=== PATIENT | male | born 1955 | race Two or more races ===

== ENCOUNTER 2022-10-25 10:47 | Emergency (ER) | payer OTHER ==
[2022-10-25 10:56] VITALS: TEMP 97.7; BMI 26.5
[2022-10-25] MEDS ORDERED: LABETALOL HCL 200 MG TABLET (FP) PO ONE (11:37)
[2022-10-25] MEDS ORDERED: LABETALOL HCL 200 MG TABLET (FP) ONE (11:40)
[2022-10-25 13:03] VITALS: BP 169/92; PULSE 89; RESP 16
[2022-10-25 14:20] LABS: POTASSIUM 3.3 mmol/L (3.5-5.1)
[2022-10-25 14:22] LABS: CALCIUM 8.4 mg/dL (8.5-10.1)
[2022-10-25 14:23] LABS: ALBUMIN 3.4 g/dl (3.4-5.0)
[2022-10-25 14:27] LABS: BILIRUBIN,TOTAL 1.2 mg/dL (0.2-1); TOT PROT 7.1 g/dl (6.4-8.2)
[2022-10-25 14:31] LABS: BLOOD UREA NITROGEN 15.9 mg/dL (7-18)
== END 2022-10-25 13:59 | disposition home or self-care (01) ==
LOC: JER 10:47
DX: R03.0 Elevated blood-pressure reading, without diagnosis of hypertension (principal)
CPT/HCPCS: 36415; 80053; 84484; 93005; 93010; 99283-25

== ENCOUNTER 2022-10-26 14:42 | Emergency (ER) | payer OTHER ==
[2022-10-26 14:48] VITALS: BP 169/111; PULSE 95; RESP 19; TEMP 98.6; BMI 24.1
[2022-10-26 17:07] LABS: EPI CELLS 10 /uL (0-25.1); HYALINE CASTS 0 /uL (0-3.1); URINE APPEARANCE CLEAR; URINE BACTERIA 7 /uL (0-1359); URINE BILIRUBIN NEGATIVE (NEGATIVE); URINE COLOR YELLOW; URINE GLUCOSE (UA) NEGATIVE (NEGATIVE); URINE KETONE NEGATIVE (NEGATIVE); URINE LEUK ESTERASE NEGATIVE (NEGATIVE); URINE NITRITE NEGATIVE (NEGATIVE); URINE PROTEIN 1+ (NEGATIVE); URINE RBC 706 /uL (0-23.9); URINE UROBILINOGEN 0.2 mg/dL (0.2-1.0); URINE WBC 4 /uL (0-25.8)
[2022-10-26 17:47] LABS: BASO % 0.4 % (0-2.0); EOS % 0.3 % (0-4.5); HEMATOCRIT 46.9 % (35.4-49); HEMOGLOBIN 15.7 GM/dL (11.7-16.9); LYMPH % 17.3 % (8-40); MCH 27.6 pg (25.7-33.7); MCHC 33.4 g/dl (32.0-35.9); MEAN CELL VOLUME 82.6 fl (80-96); MEAN PLT VOLUME 9.9 fl (7.5-11.1); MONO % 8.5 % (3.8-10.2); NEUT % 73.5 % (42.8-82.8); PLATELET COUNT 196 10^3/uL (134-434); RBC 5.67 M/mm3 (4.00-5.60); RDW 14.5 % (11.9-15.9); WHITE BLOOD COUNT 11.9 K/mm3 (4.0-10.0)
[2022-10-26 18:12] LABS: POTASSIUM 3.4 mmol/L (3.5-5.1)
[2022-10-26 18:14] LABS: ALBUMIN 3.6 g/dl (3.4-5.0); CALCIUM 9.4 mg/dL (8.5-10.1)
[2022-10-26 18:19] LABS: BILIRUBIN,TOTAL 1.2 mg/dL (0.2-1); TOT PROT 7.1 g/dl (6.4-8.2)
[2022-10-26 19:28] LABS: POTASSIUM 3.5 mmol/L (3.5-5.1)
[2022-10-26 19:29] LABS: CALCIUM 9.4 mg/dL (8.5-10.1)
[2022-10-26 19:30] LABS: BLOOD UREA NITROGEN 14.2 mg/dL (7-18)
[2022-10-26 19:33] LABS: CREATININE 1.1 mg/dL (0.55-1.3)
== END 2022-10-26 20:15 | disposition home or self-care (01) ==
LOC: JER 14:42
DX: R33.9 Retention of urine, unspecified (principal)
CPT/HCPCS: 36415; 80048; 80053; 81003; 85025; 87086; 99283-25